=== PATIENT | female | born 1970 | race Caucasian/White ===

== ENCOUNTER 2017-10-07 17:02 | Emergency (ER) | payer SELFPAY ==
[~2017-10-07] VITALS: Ht 170.2 cm; Wt 88.6 kg
[2017-10-07 17:10] VITALS: Ht 170.2 cm; Wt 88.6 kg
[2017-10-07] MEDS ORDERED: TORADOL10 MG PO (18:37)
[2017-10-07 19:11] VITALS: BP 133/106
== END 2017-10-07 19:16 | disposition home or self-care (01) ==
LOC: D.ER 17:02
DX: M54.2 Cervicalgia (principal); S80.02XA Contusion of left knee, initial encounter; V49.9XXA Car occupant (driver) (passenger) injured in unspecified traffic accident, initial encounter; Y93.89 Activity, other specified; Y92.410 Unspecified street and highway as the place of occurrence of the external cause; M25.551 Pain in right hip; F17.200 Nicotine dependence, unspecified, uncomplicated

== ENCOUNTER 2018-05-06 05:49 | Emergency (ER) | payer SELFPAY ==
[~2018-05-06] VITALS: Ht 170.2 cm; Wt 86.4 kg
[~2018-05-06 05:49] MED LIST: TORADOL10 MG PO
[2018-05-06 05:57] VITALS: Ht 170.2 cm; Wt 86.4 kg
[2018-05-06] MEDS ORDERED: KEFLEX500 MG PO (06:46)
[2018-05-06] MEDS ORDERED: CLEOCIN HCL300 MG PO (06:46)
[2018-05-06] MEDS ORDERED: TYLENOL W/CODEI1 TAB PO (06:46)
[2018-05-06 06:47] LABS: BASOPHILS 0.2 % (0-2); HEMATOCRIT 40.4 % (36.0-48.0); HEMOGLOBIN 13.5 g/dL (12-16); IMMATURE GRANULOCYTES 0.3 % (0-5); LYMPHOCYTES 20.6 % (15-50); MCH 30.8 pg (26.0-34.0); MCHC 33.4 g/dL (31.0-37.0); MCV 92.2 fL (80.0-100.0); MEAN PLATELET VOLUME 10.7 fL (7.4-10.4); MONOCYTES 10.8 % (2-11); NEUTROPHILS 66.1 % (40-80); PLATELET COUNT 228 10x3/uL (130-400); RBC 4.38 10x6/uL (4.00-5.40); RDW 12.3 % (11.5-14.5)
[2018-05-06 07:29] LABS: ALKALINE PHOSPHATASE 83 U/L (46-116); ALT (SGPT) 19 U/L (10-68); BILIRUBIN - TOTAL 0.32 mg/dL (0.2-1.3); C-REACTIVE PROTEIN 4.1 mg/dL (0.0-0.9); CALC OSMOLALITY 281 mosm/kg (275-300); CALCIUM 8.2 mg/dL (8.5-10.1); CARBON DIOXIDE 27.8 mmol/L (21.0-32.0); CHLORIDE - SERUM 103 mmol/L (98-107); CREATININE - SERUM 0.8 mg/dL (0.6-1.3); GLUCOSE 95 mg/dL (74-106); POTASSIUM - SERUM 3.8 mmol/L (3.5-5.1); PROTEIN - SERUM 7.3 g/dL (6.4-8.2); SODIUM 139 mmol/L (136-145); UREA NITROGEN 23 mg/dL (7-18); eGFR NON AFRICAN AMERICAN 82 mL/min (90-120)
[2018-05-06 07:50] VITALS: BP 132/74
== END 2018-05-06 08:04 | disposition home or self-care (01) ==
LOC: D.ER 05:49
PROVIDERS: Family Medicine
DX: L03.116 Cellulitis of left lower limb (principal)